=== PATIENT | female | born 1990 | race Caucasian/White ===

== ENCOUNTER 2022-02-18 23:41 | Emergency (ER) | payer OTHER ==
--- OUTSIDE RECORDS SUMMARY | 2022-02-18 23:45 | XMS REPORT | Continuity of Care Document ---
:1990 Author Organization [facility] t Address [address] [place] [place] [address] Care Team Providers Name Role Phone Jose Tovar DO Primary Care Physician Dia Andrews Attending Clinician Unavailable Antonio Stack Attending Clinician Unavailable YESENIA SNOWDEN Attending Clinician Unavailable Dia Andrews Admitting Clinician Unavailable Payers Payer Name Policy Type Policy Number Effective Date Expiration Date S ource Problems This patient has no known problems. Allergies, Adverse Reactions, Alerts Allergy Allergy Status Severity Reaction(s) Onset Inactive Treating Comm ents Source Name Type Date Date Clinician No Known DA Active U [facility] [place] No Known DA Active [facility] No Known DA Active U [facility] 10-21 [facility] No Known DA Active U [facility] Allergie 10-21 [facility] [place] Social History Social Habit Start Date Stop Date Quantity Comments Source History [facility] Drinks History [facility] Tobacco use and 2020-12-14 2020-12-14 Smokeless tobacco Me thodist exposure 00:00:00 00:00:00 non-user Hospital Alcohol intake 2020-12-14 2020-12-14 Lifetime [facility] 00:00:00 00:00:00 non-drinker Hospital (finding) History SDOH 2020-12-14 2020-12-14 1 [facility] Frequency 00:00:00 00:00:00 Hospita l Sex Assigned At [birth year] [facility] 00:[facility]00 [facility] Smoking Status Start Date Stop Date Source Never smoked tobacco [facility] Medications Ordered Filled Start Stop Current Ordering Indication Dosage Frequency Signature Comments Components Source Medication Medication Date Date Medication? Clinician (SIG) Name Name enoxaparin Yes ADMINISTER M ethodi (LOVENOX) 9-[address] 100 mg/mL 00:00: UNDER THE Hos tom syringe 00 SKIN EVERY l DAY HYDROcodone Yes Method i -acetaminop 9 st hen (NORCO) 00:00: Hospit a 5-325 mg 00 l per tablet ibuprofen Yes [facility] (ADVIL) [address] MG tablet 00:00: Hospita 00 l Comp-Air Yes See Admin Meth harshad Nebulizer 6-[address] Compressor 00:00: ns. Hospita device 00 l ipratropium Yes USE 1 VIAL Method[facility] -albuteroL 6-[address] (DUO-NEB) 00:00: NEBULIZER Hos tom 0.5-2.5 00 TWICE A l mg/3 mL DAY nebulizer Procedures Procedure Date / Time Performed Performing Clinician Jaylyn montes [id number] 2020-12-06 00:00:00 HENDE.01 [facility] [id number] 2020-12-06 00:00:00 GABINOE.01 [facility] [id number] 2020-12-06 00:00:00 ROMARIO.01 [facility] Plan of Care Planned Activity Planned Date Details Comments Source Future Scheduled 2022-02-02 [facility] B [facility] Test 20:13:32 VACCINES (1 of 3 - 3-dose series) [code = HEPATITIS B VACCINES (1 of 3 - 3-dose series)] Future Scheduled 2022-02-02 COVID-[address] [facility] Test 20:13:32 (#1) [code = COVID-19 VACCINE (#1)] Future Scheduled 2022-02-02 Hepatitis C [facility] Test 20:13:32 screening (procedure) [code = 552554383] Future Scheduled 2022-02-02 [facility]ening for [facility] Test 20:13:32 malignant neoplasm of cervix (procedure) [code = 363256762] Future Scheduled 2022-02-02 [facility]FLUENZA VACCINE [facility] Test 20:13:32 [code = INFLUENZA VACCINE] Encounters Start End Encounter Admission Attending Care Care Encounter Source Date/Time Date/Time Type Type Clinicians Facility Department ID 2020-12-14 Inpatient [facility] [id number] [facility] 17:15:00 [id number] [facility] [place] 2020-12-03 Inpatient EL Gabinoryx, [facility] [id number] [facility] 08:33:00 Dia [id number] [facility] [place] 2020-12-14 2020-12-14 Emergency ZENA Sreekanth, [facility] [id number] [facility] 17:15:00 22:54:00 Antonio 34 [facility] [place] 2020-12-14 2020-12-14 Emergency MOSES SNOWDENY [facility] [id number] [facility] 00:00:00 00:00:[address] 2020-12-12 2020-12-12 Outpatient EL Hendryx, [facility] [id number] [facility] 15:59:00 15:59:00 Dia [id number] [facility] [place] 2020-12-12 2020-12-12 Outpatient EL Hendryx, [facility] [id number] [facility] 15:59:00 15:59:00 Dia 13 [facility] [place] 2020-12-06 2020-12-07 Inpatient EL Hendryx, [facility] OBPP [id number] [facility] 02:35:00 22:25:00 Dia [id number] [facility] [place] 2020-12-05 2020-12-05 Emergency EL Hendryx, [facility] JAYSHREE [id number] [facility] 22:29:00 22:29:00 [facility] [id number] [facility] 2020-11-21 2020-11-21 Emergency EL BETSY Andrews JAYSHREE [id number] [facility] 20:16:00 21:14:00 [facility] [id number] [place] 2020-11-18 2020-11-19 Emergency EM BETSY Andrews JAYSHREE [id number] [facility] 22:07:00 03:25:00 [facility] [id number] [facility] Results Test Description Test Time Test Comments Results Result Comments Source COMPREHENSIVE METABOLIC PANEL 2020-12-14 20:35:00 Test Item Value Reference Range Interpretation Comme nts SODIUM (test code = NA) 140 mEq/L 135-145 N POTASSIUM (test code = K) 4.6 mEq/L 3.5-5.0 N CHLORIDE (test code = CL) 106 mEq/L 100-115 N CARBON DIOXIDE (test code = CO2) 27 mEq/L 22-31 N ANION GAP (test code = GAP) 11.70 10-20 N GLUCOSE (test code = GLU) 92 mg/dL 65-110 N BLOOD UREA NITROGEN (test code = BUN) 16 mg/dL 7-18 N GLOMERULAR FILTRATION RATE (test code = GFR) 119 ml/min >60 N CREATININE (test code = CREAT) 0.6 mg/dL 0.5-1.0 N TOTAL PROTEIN (test code = PROT) 7.5 gm/dL 6.3-8.2 N ALBUMIN (test code = ALB) 3.2 gm/dL 3.4-4.8 L CALCIUM (test code = CA) 9.0 mg/dL 8.4-10.2 N BILIRUBIN TOTAL (test code = BILT) 0.2 mg/dL 0.2-1.0 N SGOT/AST (test code = AST) 26 units/L 15-37 N SGPT/ALT (test code = ALT) 26 units/L 12-78 N ALKALINE PHOSPHATASE TOTAL (test code = ALKP) 135 units/L 46-116 H UA RFLX MICR CULT IF [id number] 20:34:00 Test Item Value Reference Range Interpretation Comments UA COLOR (test code = COLU) YELLOW YELLOW UA APPEARANCE (test code = Slightly-Cloudy CLEAR APPU) UA GLUCOSE DIPSTICK (test NEGATIVE NEG code = DGLUU) UA BILIRUBIN DIPSTICK (test NEGATIVE NEG code = BILU) UA KETONE DIPSTICK (test code NEGATIVE NEG = KETU) UA SPECIFIC GRAVITY (test 1.021 1.001-1.035 N code = SGU) UA BLOOD DIPSTICK (test code 1+ NEG A = JUAN J) UA PH DIPSTICK (test code = 5.0 5-9 ARIEL) UA PROTEIN DIPSTICK (test NEGATIVE NEG code = PROU) UA UROBILINIOGEN DIPSTICK NEGATIVE mg/dL NEG (test code = URO) UA NITRITE DIPSTICK (test NEG NEG code = PARTHA) UA LEUKOCYTE ESTERASE 3+ NEG A DIPSTICK (test code = LEUU) UA WBC (test code = WBCU) 31-40 #/hpf NONE SEEN A UA RBC (test code = RBCU) 3-5 #/hpf NONE SEEN A UA EPITHELIAL CELLS (test FEW #/HPF RARE-FEW code = EPIU) UA MUCUS (test code = MUCU) RARE NONE SEEN Indication for culture: Dysuria/FrequencySpecimen Description: CLEAN CATCHComments to Sheep Or Calf Grader: Clean CatchSpecimen Comment: Clean CatchCBC W/AUTO [id number] 19:50:00 Test Item Value Reference Range Interpretation Comments WHITE BLOOD CELL (test code = WBC) 9.2 K/mm3 6.5-12.3 N RED BLOOD CELL (test code = RBC) 5.06 M/mm3 3.51-4.69 H HEMOGLOBIN (test code = HGB) 14.6 g/dL 10.1-13.8 H HEMATOCRIT (test code = HCT) 44.7 % 32.5-41.8 H MEAN CELL VOLUME (test code = MCV) 88.3 fL 84.6-96.6 N MEAN CELL HGB (test code = MCH) 28.9 pg 27.3-33.9 N MEAN CELL HGB CONCETRATION (test 32.7 gm/dL 32.0-34.2 N code = MCHC) RED CELL DISTRIBUTION WIDTH (test 13.9 % 12.2-16.3 N code = RDW) PLATELET COUNT (test code = PLT) 423 K/mm3 134-363 H MEAN PLATELET VOLUME (test code = 9.9 fL 9.2-12.7 N MPV) NEUTROPHIL % (test code = NT%) 61.7 % 57.9-77.3 N LYMPHOCYTE % (test code = LY%) 28.5 % 14.5-29.7 N MONOCYTE % (test code = MO%) 6.5 % 3.6-10.2 N EOSINOPHIL % (test code = EO%) 2.4 % 0.0-3.0 N BASOPHIL % (test code = BA%) 0.6 % 0.1-0.9 N NEUTROPHIL # (test code = NT#) 5.7 K/mm3 LYMPHOCYTE # (test code = LY#) 2.6 K/mm3 MONOCYTE # (test code = MO#) 0.6 K/mm3 EOSINOPHIL # (test code = EO#) 0.22 K/mm3 BASOPHIL # (test code = BA#) 0.1 K/mm3 RBC MORPHOLOGY REQUIRED (test code NORMAL NORMAL = RBCM) PLATELET MORPHOLOGY REQUIRED (test NORMAL NORMAL code = PLTMR) - CT L-SPINE W/O [id number] 00:00:00 [facility] 1990 Sex: F Patient Name: MIHIR MENDOZA Unit No: [id number] EXAMS: CPT CODE: [id number] CT L-SPINE W/O CONTRAST 15476 Radiation Dose CTDIVOL = 21.75 (mGy): DLP = 808.98 (mGy-cm) PROCEDURE INFORMATION: Exam: CT Lumbar Spine Without Contrast Exam date and time: 12/14/2020 6:58 PM Age: 30 years old Clinical indication: Screening exam; Other: ; Back pain/crepitus, S/P epidural/vaginal delivery. ; Patient HX: Epidural and vag delivery 12/06/20 TECHNIQUE: Imaging protocol: Computed tomography images of the lumbar spine without contrast. Radiation optimization: All CT scans at this facility use at least one of these doseoptimization techniques: automated exposure control; mA and/or kV adjustment per patient size (includes targeted exams where dose is matched to clinical indication); or iterative reconstruction. COMPARISON: US LTD 11/18/2020 11:52 PM RADIATION DOSE METRICS: CTDI volume (mGy): 21.75 Total DLP (mGy-cm): 808.98 FINDINGS: Vertebrae: There are 5 nonrib-bearing lumbar vertebral segments. There is normal alignment of the lumbar spine without fractures or spondylolisthesis. The lumbar vertebrae demonstrate normal height. The posterior elements appear unremarkable intervertebral disc heights arewell preserved. There are no pars interarticularis defects noted. The anterior and posterior paraspinal soft tissues are unremarkable. Degenerative changes with vacuum phenomena along the bilateral sacroiliac joints. L1-L2: No significant disc protrusion. No severe spinal canal stenosis. No significant neural foraminal narrowing. L2-L3: No significant disc protrusion. No severe spinal canal stenosis.No significant neural foraminal narrowing. L3-L4: No significant disc protrusion. No severe spinal canal stenosis. No significant neural foraminal narrowing. L4-L5: No significant disc protrusion. No severe spinal canal [facility] NAME: MIHIR MENDOZA Radiology Department PHYS: SASKIA Melton SreekanthAntonio Perry [address] : 1990 AGE: 30 SEX: F [place], [place] [address] LOC: DONNA PHONE #: [phone] EXAM DATE: 12/14/2020 STATUS: REG ER FAX #: [phone] RAD NO: Page 1 Signed Report 1 Patient Name: MIHIR MENDOZA Unit No: [id number] EXAMS: CPT CODE:[id number] CT L-SPINE W/O CONTRAST 43165 (Continued) stenosis. No significant neural foraminal narrowing. L5-S1: No significant disc protrusion. No severe spinal canal stenosis. No significant neural foraminal narrowing. Soft tissues: Unremarkable. IMPRESSION: 1. No acute fracture or subluxation. 2. Bilateral sacroiliitis. at 1927 Reported and signed by: Yarelis Wynne MD CC: Dia Andrews MD Technologist: Kelly Lomeli, RT, CT CTDI: 21.75 DLP: 808.98 Trnscrbd D/ (1926) GCD.CPS [facility] NAME: MIHIR MENDOZA Radiology Department PHYS: Antonio Vidales [address] : 1990 AGE: 30 SEX: F [place] [address] LOC: KumarERS PHONE #: [phone] EXAM DATE: 12/14/2020 STATUS: REG ER FAX #: [phone] RAD NO: Page 2 Signed Report 1 Patient Name: MIHIR MENDOZA Unit No: [id number] EXAMS: CPT CODE: [id number] CT L-SPINE W/O CONTRAST 41448 (Continued) Orig Print D/T: S: 12/14/2020 (1926) [facility] NAME: MIHIR MENDOZA Radiology Department PHYS: Antonio Vidales [address] : 1990 AGE: 30 SEX: F [place] [address] LOC: KumarERS PHONE #: [phone] EXAM DATE: 12/14/2020 STATUS: REG ER FAX #: [phone] RAD NO: Page 3 Signed Report 1- [facility] [id number] 00:00:00 [facility] : 1990 Sex: F Patient Name: MIHIR MENDOZA Unit No: [id number] EXAMS: CPT CODE: [id number] [address] PROCEDURE INFORMATION: Exam: US Duplex Left Upper Extremity Veins, Limited Exam date and time: 12/12/2020 6:04 PM Age: 30 years old Clinical indication: Pain; Arm, upper; Left; Additional info: Lt arm poss phlebitis and thrombophlebitis after iv TECHNIQUE: Imaging protocol: Real-time Duplex ultrasound of the Left Upper Extremity with 2-D burgess scale, color Doppler flow and spectral waveform analysis with image documentation. Limited exam focused on the left upper extremity veins. COMPARISON: No relevant prior studies available. FINDINGS: Left deep veins: Axillary and brachial veins are patent throughout without thrombus. However, the brachial vein demonstrates slow flow with persistentcompressibility. Normal compressibility and/or augmentation response. Visualized internal jugular and subclavian veins are patent. Left superficial veins: Portions of the basilic vein are patent with color flow and compressibility with the lower aspect suggested to be partially thrombosed. Soft tissues: No significant finding. Other findings: A superficial vein in the medial posterior forearm demonstrates intraluminal heterogeneous hypoechoic thrombus with noncompressibility and color flow. IMPRESSION: 1. Superficial vein thrombosis in the forearm. 2. No definite deep vein thrombosis in the left upper extremity. Findings were discussed with Dia Andrews at 12/12/2020 7:17 PM CDT. at 1920 Reported and signed by: Dorian Avery MD CC: Dia Andrews MD Technologist: Nicci Gonzales RDMS Probe: Trnscrbd D/ (1919) GCD. CPS Orig Print D/T: S: 12/12/2020 (1919) [facility] NAME: IMHIR MENDOZA Radiology Department PHYS: ROMARIO. - Dia Andrews [address] : 1990 AGE: 30 [place]: [place] [address] LOC: KumarRAD PHONE #: [phone] EXAM DATE: 12/12/2020 STATUS: REG CLI FAX #: [phone] RAD NO: Page 1 Signed Report Patient Name: MIHIR MENDOZA Unit No: [id number] EXAMS: CPT CODE: [id number] [place] [address] (Continued) [facility] NAME: MIHIR MENDOZA Radiology Department PHYS: Dia Andrews [address] : 1990 AGE: 30 SEX: Sara [place], [place] [address] LOC: MARINE PHONE #: [phone] EXAM DATE: 12/12/2020 STATUS: REG CLI FAX #: [phone] RAD NO: Page 2 Signed ReportCBC W/AUTO [id number] 08:38:00 Test Item Value Reference Range Interpretation Comments WHITE BLOOD CELL (test code = WBC) 13.8 K/mm3 6.5-12.3 H RED BLOOD CELL (test code = RBC) 3.78 M/mm3 3.51-4.69 N HEMOGLOBIN (test code = HGB) 10.8 g/dL 10.1-13.8 N HEMATOCRIT (test code = HCT) 33.8 % 32.5-41.8 N MEAN CELL VOLUME (test code = MCV) 89.4 fL 84.6-96.6 N MEAN CELL HGB (test code = MCH) 28.6 pg 27.3-33.9 N MEAN CELL HGB CONCETRATION (test 32.0 gm/dL 32.0-34.2 N code = MCHC) RED CELL DISTRIBUTION WIDTH (test 14.6 % 12.2-16.3 N code = RDW) PLATELET COUNT (test code = PLT) 239 K/mm3 134-363 N MEAN PLATELET VOLUME (test code = 10.8 fL 9.2-12.7 N MPV) NEUTROPHIL % (test code = NT%) 59.0 % 57.9-77.3 N LYMPHOCYTE % (test code = LY%) 29.1 % 14.5-29.7 N MONOCYTE % (test code = MO%) 6.7 % 3.6-10.2 N EOSINOPHIL % (test code = EO%) 4.3 % 0.0-3.0 H BASOPHIL % (test code = BA%) 0.5 % 0.1-0.9 N NEUTROPHIL # (test code = NT#) 8.2 K/mm3 LYMPHOCYTE # (test code = LY#) 4.0 K/mm3 MONOCYTE # (test code = MO#) 0.9 K/mm3 EOSINOPHIL # (test code = EO#) 0.59 K/mm3 BASOPHIL # (test code = BA#) 0.1 K/mm3 RBC MORPHOLOGY REQUIRED (test code NORMAL NORMAL = RBCM) PLATELET MORPHOLOGY REQUIRED (test NORMAL NORMAL code = PLTMR) AG HEPATITIS B [id number] 03:37:00 Test Item Value Reference Range Interpretation Comments AG HEPATITIS B SURFACE (test code NONREACTIVE NONREACTIVE = HBSAG) AB HEPATITIS C [id number] 03:37:00 Test Item Value Reference Range Interpretation Comments AB HEPATITIS C (test code = NONREACTIVE NONREACTIVE HCVAB) SIGNAL TO CUTOFF (test code = 0.09 <0.80 N CUTOFF) AB [id number] 03:37:00 Test Item Value Reference Range Interpretation Comments AB TREPONEMA (test code = TREPAB) NONREACTIVE NONREACTIVE AB HIV 1 03:37:00 Test Item Value Reference Range Interpretation Comments AB HIV 1 2 (test NONREACTIVE NONREACTIVE [facility] code = [id number]) 4th Gen HIV Ag/Ab Combo Screen AG HEPATITIS B [id number] 03:13:00 Test Item Value Reference Range Interpretation Comments AG HEPATITIS B SURFACE (test code NONREACTIVE NONREACTIVE = HBSAG) AB HEPATITIS C [id number] 03:13:00 Test Item Value Reference Range Interpretation Comments AB HEPATITIS C (test code = HCVAB) NONREACTIVE SIGNAL TO CUTOFF (test code = CUTOFF) <0.80 AB [id number] 03:13:00 Test Item Value Reference Range Interpretation Comments AB TREPONEMA (test code = TREPAB) NONREACTIVE NONREACTIVE AB HIV 1 03:13:00 Test Item Value Reference Range Interpretation Comments AB HIV 1 2 (test code = [id number]) NONREACTIVE COVID 19 Asymptomatic IH [id number] 02:25:00 Test Item Value Reference Range Interpretation Comments COVID 19 NEGATIVE NEGATIVE This test has b een Asymptomatic IH AG authorize d only for the (test code = detection ofpro teins from COVNONPUIAG) SARS-CoV-2, not for any other viruses orpathogens. Ne gative results should be treated as presumptive andconfirmed wi th a molecular assay , if necessary for patientmanageme nt. Negative result s do not rule out COVID- 19 andshould not b e used as the sole basis for treatment orpat ient management deci sions, including infec tion controldecision s. Negative result s should be considered i n thecontext of a patient's recent exposure s, history and thepresence of clinical signs and symptoms consis tent withCOVID-19. T his test has not been FD A cleared or approved; th e test hasbeen authordeyvi richmond by FDA under an Emerge ncy Use Authorization(E UA) for use by laborato kristian certified under the CLIA thatmeet the re quirements to perform mode rate, high or waivedcomple xity tests. This ruma t is authorized for use at thePoint of Car e (POC), i.e., in patien t care settingsoperati ng under a CLIA Certificat e of Waiver, Certifi keagan ofCompliance, o r Certificate of Accreditation. This test is only authori yi for the duration of thedeclaration that circumstances e xist justifying theauthorizatio n of emergency use o f in vitro diagnostic test sfor detection and/o r diagnosis of CO VID-19 under [id number] 4(b)(1) of the Act, 21 U.S .C. 360bbb-3(b)(1), unless theauthorizatio n is terminated or r evoked sooner. Specimen Comment: LDO DCBC W/AUTO [id number] 02:22:00 Test Item Value Reference Range Interpretation Comments WHITE BLOOD CELL (test 20.5 K/mm3 6.5-12.3 HH RESUL TS CALLED TO code = WBC) JOEL GOMEZ.READ BACK & CONFIRMED? ZEV MaryYoanaBY [id number] 221. RED BLOOD CELL (test 4.73 M/mm3 3.51-4.69 H code = RBC) HEMOGLOBIN (test code = 13.5 g/dL 10.1-13.8 N HGB) HEMATOCRIT (test code = 41.8 % 32.5-41.8 N HCT) MEAN CELL VOLUME (test 88.4 fL 84.6-96.6 N code = MCV) MEAN CELL HGB (test code 28.5 pg 27.3-33.9 N = MCH) MEAN CELL HGB 32.3 gm/dL 32.0-34.2 N CONCETRATION (test code = MCHC) RED CELL DISTRIBUTION 14.4 % 12.2-16.3 N WIDTH (test code = RDW) PLATELET COUNT (test 309 K/mm3 134-363 N code = PLT) MEAN PLATELET VOLUME 10.8 fL 9.2-12.7 N (test code = MPV) NEUTROPHIL % (test code 70.2 % 57.9-77.3 N = NT%) LYMPHOCYTE % (test code 20.9 % 14.5-29.7 N = LY%) MONOCYTE % (test code = 6.6 % 3.6-10.2 N MO%) EOSINOPHIL % (test code 1.4 % 0.0-3.0 N = EO%) BASOPHIL % (test code = 0.3 % 0.1-0.9 N BA%) NEUTROPHIL # (test code 14.4 K/mm3 = NT#) LYMPHOCYTE # (test code 4.3 K/mm3 = LY#) MONOCYTE # (test code = 1.4 K/mm3 MO#) EOSINOPHIL # (test code 0.28 K/mm3 = EO#) BASOPHIL # (test code = 0.1 K/mm3 BA#) RBC MORPHOLOGY REQUIRED NORMAL NORMAL (test code = RBCM) PLATELET MORPHOLOGY NORMAL NORMAL REQUIRED (test code = PLTMR) URINALYSIS [id number] 00:35:00 Test Item Value Reference Range Interpretation Comments UA COLOR (test code = COLU) YELLOW YELLOW UA APPEARANCE (test code = Slightly-Cloudy CLEAR APPU) UA GLUCOSE DIPSTICK (test NEGATIVE NEG code = DGLUU) UA BILIRUBIN DIPSTICK (test NEGATIVE NEG code = BILU) UA KETONE DIPSTICK (test code 1+ NEG A = KETU) UA SPECIFIC GRAVITY (test 1.009 1.001-1.035 N code = SGU) UA BLOOD DIPSTICK (test code NEG NEG = JUAN J) UA PH DIPSTICK (test code = 6.0 5-9 ARIEL) UA PROTEIN DIPSTICK (test NEGATIVE NEG code = PROU) UA UROBILINIOGEN DIPSTICK NEGATIVE mg/dL NEG (test code = URO) UA NITRITE DIPSTICK (test NEG NEG code = PARTHA) UA LEUKOCYTE ESTERASE NEG NEG DIPSTICK (test code = LEUU) UA WBC (test code = WBCU) 0-2 #/hpf NONE SEEN UA RBC (test code = RBCU) 0-2 #/hpf NONE SEEN UA EPITHELIAL CELLS (test RARE #/HPF RARE-FEW code = EPIU) UA BACTERIA (test code = RARE /HPF RARE-FEW BACU) UA MUCUS (test code = MUCU) RARE NONE SEEN - US [id number] 00:00:00 [facility] 1990 Sex: F Patient Name: MIHIR MENDOZA Unit No: [id number] EXAMS: CPT CODE: [id number] [place] LTD 42788 PROCEDURE INFORMATION: Exam: US , Limited Exam date and time: 11/18/2020 11:52 PM Age: 30 years old Clinical indication: complicated by abdominal or pelvic pain; Left lower quadrant; Third trimester; Gestational age or lmp: 37wks 6 days; ; Additional info: Ab pain 37 weeks preg TECHNIQUE: Imaging protocol: Real-time ultrasound of the maternal uterus with image documentation. Exam focused on the clinical indication. COMPARISON: No relevant prior studies available. FINDINGS: Gestation: Single live intrauterine at 37 weeks 6 days. positi on: The structures are not individually evaluated on this examination, but no abnormality is demonstrated. heart rate: heart rate 136 bpm. Presentation: Cephalic. Placenta: Posterior fundal grade 2 placenta. No placenta previa. No retroplacental hematoma or abruption. Amniotic fluid index: ZACKARY 12.9 cm. MATERNAL: Cervix: Mildly limited visualization of the cervix estimated 2.4- 2.9 cmwith subtle hypoechogenicity in the region of the endocervical canal either representing artifact, mucus, or a small amount of endocervical fluid. Right adnexa: Nonvisualized maternal right ovary secondary to artifact from overlying bowel gas. Left adnexa: Normal maternal left ovary measuring 2.5 x 1.5 x 3.4 cm. Blood flow is demonstrated to the left ovary. IMPRESSION: 1. Single live intrauterine at 37 weeks 6 days. 2. ZACKARY 12.9 cm. 3. The structures are not individually evaluated on this examination, but no abnormality is demonstrated. 4. Mildly limited visualization of the cervix es timated 2.4-2.9 cm with subtle hypoechogenicity in the region of the endocervical canal either representing artifact, mucus, or a small amount of endocervical fluid. at 0031 Reported and signed by: Tj Mulligan MD [facility] NAME: MHIIR MENDOZA REZA Radiology Department PHYS: Kelvin Charlton III, MD [address] : 1990 AGE: 30 SEX: F [place], [place] [address] LOC: F.JAYSHREE PHONE #: [phone] EXAM DATE: 11/18/2020 STATUS: REG ER FAX #: [phone] RAD NO: Page 1 Signed Report (CONTINUED) Patient Name: MIHIR MENDOZA Unit No: [id number] EXAMS: CPT CODE: [id number] LTD 01158 (Continued) CC: Dia Andrews MD; Kelvin Thakur III, MD Technologist: Nicci Gonzales RDMS Probe: Trnscrbd D/ (0031) BARRERA.CPS Orig Print D/T: S: 11/19/2020 (0031) [facility] NAME: MIHIR MENDOZATANY Radiology Department PHYS: Kelvin Charlton [address] : 1990 AGE: 30 SEX: F [place] [address] LOC: Sara.OBEDPHONE #: [phone] EXAM DATE: 11/18/2020 STATUS: REG ER FAX #: [phone] RAD NO: Page 2 SignedReport Patient Name: MIHIR MENDOZA Unit No: [id number] EXAMS: CPT CODE: [id number] [facility] [address] (Continued) [facility] NAME: LINDSAY [facility] Rad[facility] Department PHYS: Kelvin Charlton III [place] [address] : 1990 AGE: 30 SEX: F [place] [id number] LOC: F.JAYSHREE PHONE #: [phone] EXAM DATE: 11/18/2020 STATUS: REG ER FAX#: [phone] RAD NO: Page 3 Signed ReportCBC W/AUTO [id number] 22:57:00 Test Item Value Reference Range Interpretation Comments WHITE BLOOD CELL (test code = WBC) 13.0 K/mm3 6.5-12.3 H RED BLOOD CELL (test code = RBC) 4.19 M/mm3 3.51-4.69 N HEMOGLOBIN (test code = HGB) 12.0 g/dL 10.1-13.8 N HEMATOCRIT (test code = HCT) 36.2 % 32.5-41.8 N MEAN CELL VOLUME (test code = MCV) 86.4 fL 84.6-96.6 N MEAN CELL HGB (test code = MCH) 28.6 pg 27.3-33.9 N MEAN CELL HGB CONCETRATION (test 33.1 gm/dL 32.0-34.2 N code = MCHC) RED CELL DISTRIBUTION WIDTH (test 13.9 % 12.2-16.3 N code = RDW) PLATELET COUNT (test code = PLT) 262 K/mm3 134-363 N MEAN PLATELET VOLUME (test code = 10.6 fL 9.2-12.7 N MPV) NEUTROPHIL % (test code = NT%) 62.1 % 57.9-77.3 N LYMPHOCYTE % (test code = LY%) 25.3 % 14.5-29.7 N MONOCYTE % (test code = MO%) 7.7 % 3.6-10.2 N EOSINOPHIL % (test code = EO%) 3.6 % 0.0-3.0 H BASOPHIL % (test code = BA%) 0.5 % 0.1-0.9 N NEUTROPHIL # (test code = NT#) 8.0 K/mm3 LYMPHOCYTE # (test code = LY#) 3.3 K/mm3 MONOCYTE # (test code = MO#) 1.0 K/mm3 EOSINOPHIL # (test code = EO#) 0.47 K/mm3 BASOPHIL # (test code = BA#) 0.1 K/mm3 RBC MORPHOLOGY REQUIRED (test code NORMAL NORMAL = RBCM) PLATELET MORPHOLOGY REQUIRED (test NORMAL NORMAL code = PLTMR) LAURENCE [id number] 11:44:00 RUN DATE: 10/29/18 [facility] PAGE 1 RUN TIME: 1346 Specimen Inquiry RUN USER: INTERFACE --PATIENT: MIHIR MENDOZA LOC: JEREMY U #: [id number] AGE/SX: 28/ ROOM: [facility] RE10/27/18REG DR: Dia Andrews MD : 89 BED: A DIS: STATUS: ADM IN TLOC: SPEC #: [id number] RECD: 10/27/18 STATUS: KAILEY REBarbara #: [id number] ANCA: 10/27/18- SUBM DR: Dia Andrews MD ENTERED: 10/28/18 SP TYPE: VAGBX OTHR DR: ORDERED: LEVEL IV CODES: [id number] - VAGINA, NOS PROCEDURES: LEVEL IV (Incomplete) TISSUES: VAGINA, NOS - VAGINAL INCLUSION CYSTS CLINICAL HISTORY 28 year old, 40.3 weeks, vaginal inclusion cysts (kr) FINAL DIAGNOSIS Vaginal inclusion cysts x2, excision: - benign epithelial inclusion cysts CPT code(s): 08261 [facility] GROSS DESCRIPTION ANATOMIC SOURCE OF TISSUE (per Requisition): Vaginal inclusion cysts x2 The specimen is received in a formalin-filled container, labeled with the p atient's name and designated "vaginal inclusion cysts x2". The specimen consists of two well-circumscribed, unilocular cystic structures with attached soft tissues, 0.4 and 0.6 cm. The tissues are submitted in toto labeled A1. cem 10/28/18 @ 0923 Signed Benita Acharya MD 10/29/18 1144 END OF REPORT CBC W/AUTO [id number] 08:26:00 Test Item Value Reference Range Interpretation Comments WHITE BLOOD CELL (test code = WBC) 14.4 K/mm3 6.6-12.1 H RED BLOOD CELL (test code = RBC) 3.81 M/mm3 3.45-5.01 N HEMOGLOBIN (test code = HGB) 10.8 g/dL 10.7-13.9 N HEMATOCRIT (test code = HCT) 33.4 % 32.1-42.1 N MEAN CELL VOLUME (test code = MCV) 88 fL 84.1-94.8 N MEAN CELL HGB (test code = MCH) 28.3 pg 27-35 N MEAN CELL HGB CONCETRATION (test 32.3 gm/dL 32.2-34.1 N code = MCHC) RED CELL DISTRIBUTION WIDTH (test 13.8 % 12.4-16.5 N code = RDW) PLATELET COUNT (test code = PLT) 186 K/mm3 133-385 N IMMATURE PLATELET FRACTION (test 0.0 % 0.0-10.8 N code = IPF) MEAN PLATELET VOLUME (test code = 10.5 fl 9.1-12.7 N MPV) NEUTROPHIL % (test code = NT%) 67.9 % 56.5-79.4 N LYMPHOCYTE % (test code = LY%) 21.2 % 14.3-34.3 N MONOCYTE % (test code = MO%) 7.7 % 5.1-10.4 N EOSINOPHIL % (test code = EO%) 2.2 % 0.1-3.0 N BASOPHIL % (test code = BA%) 0.5 % 0.1-1.0 N NEUTROPHIL # (test code = NT#) 9.8 K/mm3 LYMPHOCYTE # (test code = LY#) 3.1 K/mm3 MONOCYTE # (test code = MO#) 1.1 K/mm3 EOSINOPHIL # (test code = EO#) 0.32 K/mm3 BASOPHIL # (test code = BA#) 0.1 K/mm3 RBC MORPHOLOGY REQUIRED (test code NORMAL NORMAL = RBCM) PLATELET MORPHOLOGY REQUIRED (test NORMAL NORMAL code = PLTMR) AG HEPATITIS B [id number] 15:02:00 Test Item Value Reference Range Interpretation Comments AG HEPATITIS B SURFACE (test code NONREACTIVE NONREACTIVE = HBSAG) AB HEPATITIS C [id number] 15:02:00 Test Item Value Reference Range Interpretation Comments AB HEPATITIS C (test code = NONREACTIVE NONREACTIVE HCVAB) SIGNAL TO CUTOFF (test code = 0.05 <0.80 N CUTOFF) AB [id number] 15:02:00 Test Item Value Reference Range Interpretation Comments AB TREPONEMA (test code = TREPAB) NONREACTIVE NONREACTIVE AB HIV 1 15:02:00 Test Item Value Reference Range Interpretation Comments AB HIV 1 2 (test NONREACTIVE NONREACTIVE Done by [facility] code = MED79DA) 4th Gen HIV Ag/Ab Combo Screen AG HEPATITIS B [id number] 10:31:00 Test Item Value Reference Range Interpretation Comments AG HEPATITIS B SURFACE (test code NONREACTIVE NONREACTIVE = HBSAG) AB HEPATITIS C [id number] 10:31:00 Test Item Value Reference Range Interpretation Comments AB HEPATITIS C (test code = NONREACTIVE NONREACTIVE HCVAB) SIGNAL TO CUTOFF (test code = 0.05 <0.80 N CUTOFF) AB [id number] 10:31:00 Test Item Value Reference Range Interpretation Comments AB TREPONEMA (test code = TREPAB) NONREACTIVE NONREACTIVE AG HEPATITIS B [id number] 10:27:00 Test Item Value Reference Range Interpretation Comments AG HEPATITIS B SURFACE (test code NONREACTIVE NONREACTIVE = HBSAG) AB HEPATITIS C [id number] 10:27:00 Test Item Value Reference Range Interpretation Comments AB HEPATITIS C (test code = HCVAB) NONREACTIVE SIGNAL TO CUTOFF (test code = CUTOFF) <0.80 AB [id number] 10:27:00 Test Item Value Reference Range Interpretation Comments AB TREPONEMA (test code = TREPAB) NONREACTIVE NONREACTIVE CBC W/AUTO [id number] 09:26:00 Test Item Value Reference Range Interpretation Comments WHITE BLOOD CELL (test code = WBC) 11.7 K/mm3 6.6-12.1 N RED BLOOD CELL (test code = RBC) 4.48 M/mm3 3.45-5.01 N HEMOGLOBIN (test code = HGB) 12.7 g/dL 10.7-13.9 N HEMATOCRIT (test code = HCT) 39.5 % 32.1-42.1 N MEAN CELL VOLUME (test code = MCV) 88 fL 84.1-94.8 N MEAN CELL HGB (test code = MCH) 28.3 pg 27-35 N MEAN CELL HGB CONCETRATION (test 32.2 gm/dL 32.2-34.1 N code = MCHC) RED CELL DISTRIBUTION WIDTH (test 14.0 % 12.4-16.5 N code = RDW) PLATELET COUNT (test code = PLT) 237 K/mm3 133-385 N IMMATURE PLATELET FRACTION (test 0.0 % 0.0-10.8 N code = IPF) MEAN PLATELET VOLUME (test code = 11.4 fl 9.1-12.7 N MPV) NEUTROPHIL % (test code = NT%) 68.5 % 56.5-79.4 N LYMPHOCYTE % (test code = LY%) 20.9 % 14.3-34.3 N MONOCYTE % (test code = MO%) 8.0 % 5.1-10.4 N EOSINOPHIL % (test code = EO%) 1.5 % 0.1-3.0 N BASOPHIL % (test code = BA%) 0.4 % 0.1-1.0 N NEUTROPHIL # (test code = NT#) 8.0 K/mm3 LYMPHOCYTE # (test code = LY#) 2.4 K/mm3 MONOCYTE # (test code = MO#) 0.9 K/mm3 EOSINOPHIL # (test code = EO#) 0.18 K/mm3 BASOPHIL # (test code = BA#) 0.1 K/mm3 RBC MORPHOLOGY REQUIRED (test code NORMAL NORMAL = RBCM) PLATELET MORPHOLOGY REQUIRED (test NORMAL NORMAL code = PLTMR)
[2022-02-19] MEDS ORDERED: dexAMETHasone 10 MG/ML VIAL ONE (00:07)
--- NOTE | 2022-02-19 00:08 | EDPHYS ---
Physician Documentation [facility] Name: Jeana Simental Age: 31 yrs Sex: Female : 1990 Arrival Date: 02/18/2022 Time: 23:44 Bed 20 Private MD: ED Physician Anibal Larsen HPI: 02/19 00:02 This 31 yrs old Female presents to ER via Ambulatory with complaints of malvin Fever, Sore Throat, Cough. 00:02 The patient reports fever, that was measured at 104 degrees Fahrenheit. Onset: The malvin symptoms/episode began/occurred 2 day(s) ago. Modifying factors: there are no obvious modifying factors. Severity of symptoms: At their worst the symptoms were mild in the emergency department the symptoms are unchanged. The patient has experienced similar episodes in the past, several times. 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 Last tetanus immunization: unknown. - Social history:: Smoking status: Patient denies any tobacco usage or history of. - Family history:: not pertinent. ROS: 02/19 00:02 Constitutional: Negative for fever, chills, and weight loss, Eyes: Negative for injury, malvin pain, redness, and discharge, Neck: Negative for injury, pain, and swelling, Cardiovascular: Negative for chest pain, palpitations, and edema, Respiratory: Negative for shortness of breath, cough, wheezing, and pleuritic chest pain, Abdomen/GI: Negative for abdominal pain, nausea, vomiting, diarrhea, and constipation, Back: Negative for injury and pain, : Negative for injury, bleeding, discharge, and swelling, MS/Extremity: Negative for injury and deformity, Skin: Negative for injury, rash, and discoloration, Neuro: Negative for headache, weakness, numbness, tingling, and seizure, Psych: Negative for depression, anxiety, suicide ideation, homicidal ideation, and hallucinations, Allergy/Immunology: Negative for hives, rash, and allergies, Endocrine: Negative for neck swelling, polydipsia, polyuria, polyphagia, and marked weight changes, Hematologic/Lymphatic: Negative for swollen nodes, abnormal bleeding, and unusual bruising. ENT: Positive for sore throat. Exam: 00:02 Constitutional: This is a well developed, well nourished patient who is awake, alert, malvin and in no acute distress. Head/Face: Normocephalic, atraumatic. Eyes: Pupils equal round and reactive to light, extra-ocular motions intact. Lids and lashes normal. Conjunctiva and sclera are non-icteric and not injected. Cornea within normal limits. Periorbital areas with no swelling, redness, or edema. Neck: Trachea midline, no thyromegaly or masses palpated, and no cervical lymphadenopathy. Supple, full range of motion without nuchal rigidity, or vertebral point tenderness. No Meningismus. Chest/axilla: Normal chest wall appearance and motion. Nontender with no deformity. No lesions are appreciated. Cardiovascular: Regular rate and rhythm with a normal S1 and S2. No gallops, murmurs, or rubs. Normal PMI, no JVD. No pulse deficits. Respiratory: Lungs have equal breath sounds bilaterally, clear to auscultation and percussion. No rales, rhonchi or wheezes noted. No increased work of breathing, no retractions or nasal flaring. Abdomen/GI: Soft, non-tender, with normal bowel sounds. No distension or tympany. No guarding or rebound. No evidence of tenderness throughout. Back: No spinal tenderness. No costovertebral tenderness. Full range of motion. Skin: Warm, dry with normal turgor. Normal color with no rashes, no lesions, and no evidence of cellulitis. MS/ Extremity: Pulses equal, no cyanosis. Neurovascular intact. Full, normal range of motion. Neuro: Awake and alert, GCS 15, oriented to person, place, time, and situation. Cranial nerves II-XII grossly intact. Motor strength 5/5 in all extremities. Sensory grossly intact. Cerebellar exam normal. Normal gait. Psych: Awake, alert, with orientation to person, place and time. Behavior, mood, and affect are within normal limits. 00:02 ENT: Posterior pharynx: Airway: normal, no evidence of obstruction, Tonsils: bilaterally enlarged, with erythema, with exudate, Uvula: midline, swelling, that is mild, erythema, that is mild, exudate, is not appreciated, peritonsillar mass, is not appreciated, pooling of secretions, is not appreciated. Vital Signs: 02/18 23:51 BP 109 / 85; Pulse 114; Resp 20; Temp 98.5; Pulse Ox 100% ; Weight 90.72 kg; Height 5 kb3 ft. 3 in. (160.02 cm); Pain 8/10; 02/19 00:25 BP 114 / 74; Pulse 102; Resp 18; Pulse Ox 99% on R/A; kd3 02/18 23:51 Body Mass Index 35.43 (90.72 kg, 160.02 cm) kb3 MDM: 02/18 23:49 Patient medically screened. malvin 02/19 00:05 Differential diagnosis: bacterial infection. Data reviewed: vital signs, nurses notes, malvin lab test result(s), Flu: negative. Data interpreted: alarm security or surveillance monitor: not applicable for this patient encounter. rate is 20 beats/min, rhythm is regular, Pulse oximetry: on room air. Test interpretation: by ED physician or midlevel provider:. Counseling: I had a detailed discussion with the patient and/or guardian regarding: the historical points, exam findings, and any diagnostic results supporting the discharge/admit diagnosis, lab results. 00:16 ED course: No concern for GC. malvin 02/19 00:02 Order name: Strep malvin 02/19 00:02 Order name: COVID-19/FLU A+B malvin Administered Medications: 00:25 Drug: Decadron (dexamethasone) 10 mg Route: IM; Site: left gluteus; kd3 00:35 Follow up: Response: No adverse reaction kd3 00:25 Drug: Bicillin L-A (penicillin G Benzathine) 1.8 million units Route: IM; Site: left kd3 gluteus; 00:36 Follow up: Response: No adverse reaction kd3 Disposition Summary: 02/19/22 00:06 Discharge Ordered Location: Home malvin Problem: new malvin Symptoms: have improved malvin Condition: Stable malvin Diagnosis - Acute tonsillitis, unspecified malvin - Fever, unspecified malvin Followup: malvin - With: Private Physician - When: 2 - 3 days - Reason: Recheck today's complaints, Continuance of care, Re-evaluation by your physician Discharge Instructions: - Discharge Summary Sheet malvin - Fever, Adult malvin - Tonsillitis malvin - Tonsillitis, [id number] malvin - Tonsillectomy, Adult, Care After, [id number] malvin - Fever, Adult, Olgg-ug-Jlej malvin Forms: - Medication Reconciliation Form malvin - Thank You Letter malvin - Antibiotic Education malvin - Prescription Opioid Use malvin Signatures: Dispatcher [employer] Anibal Fam MD MD cha Doucette, Kyli RN RN kd3 Lakshmi Cuadra RN RN kb3
--- NOTE | 2022-02-19 00:08 | ER ---
Nurse's Notes [facility] Name: Jeana Simental Age: 31 yrs Sex: Female : 1990 Arrival Date: 02/18/2022 Time: 23:44 Bed 20 Private MD: Diagnosis: Acute tonsillitis, unspecified;Fever, unspecified Presentation: 02/18 23:51 Chief complaint: Patient states: Pt reports sore throat, dry cough, and fever x2 days. kb3 Negative for covid/flu/strep at Urgent Care yesterday. Began taking amoxicillin today. Coronavirus screen: Vaccine status: Patient reports being unvaccinated. Client denies travel out of the [place] in the last 14 days. Ebola Screen: Patient negative for fever greater than or equal to 101.5 degrees Fahrenheit, and additional compatible Ebola Virus Disease symptoms Patient denies exposure to infectious person. Patient denies travel to an Ebola-affected area in the 21 days before illness onset. Initial Sepsis Screen: Does the patient meet any 2 criteria? No. Patient's initial sepsis screen is negative. Does the patient have a suspected source of infection? Yes: Other: Pharyngitis. Risk Assessment: Do you want to hurt yourself or someone else? Patient reports no desire to harm self or others. Onset of symptoms was February 16, 2022. 23:51 Method Of Arrival: Ambulatory kb3 23:51 Acuity: CHOCO 3 kb3 Triage Assessment: 23:55 General: Appears in no apparent distress. Behavior is calm, cooperative. Pain: kb3 Complains of pain in left aspect of posterior pharynx and right aspect of posterior pharynx Pain does not radiate. Pain currently is 8 out of 10 on a pain scale. EENT: Throat is reddened has patchy exudate has enlarged tonsils bilaterally. 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 Last tetanus immunization: unknown. - Social history:: Smoking status: Patient denies any tobacco usage or history of. - Family history:: not pertinent. Screenin/23 00:26 Abuse screen: Denies threats or abuse. Denies injuries from another. Nutritional kd3 screening: No deficits noted. Tuberculosis screening: No symptoms or risk factors identified. Fall Risk None identified. Assessment: 00:26 General: Appears in no apparent distress. Behavior is calm, cooperative. Neuro: Level kd3 of Consciousness is awake, alert, obeys commands, Oriented to person, place, time, situation. Cardiovascular: Patient's skin is warm and dry. Respiratory: Airway is patent Respiratory effort is even, unlabored, Breath sounds are clear bilaterally. Vital Signs: 02/18 23:51 BP 109 / 85; Pulse 114; Resp 20; Temp 98.5; Pulse Ox 100% ; Weight 90.72 kg; Height 5 kb3 ft. 3 in. (160.02 cm); Pain 8/10; 02/19 00:25 BP 114 / 74; Pulse 102; Resp 18; Pulse Ox 99% on R/A; kd3 02/18 23:51 Body Mass Index 35.43 (90.72 kg, 160.02 cm) kb3 ED Course: 02/18 23:44 Patient arrived in ED. ag3 23:49 Anibal Larsen MD is Attending Physician. [facility] 23:55 Triage completed. kb3 23:55 Arm band placed on right wrist. kb3 02/19 00:04 Sandhya Wiseman RN is Primary Nurse. kd3 00:26 Patient has correct armband on for positive identification. kd3 Administered Medications: 00:25 Drug: Decadron (dexamethasone) 10 mg Route: IM; Site: left gluteus; kd3 00:35 Follow up: Response: No adverse reaction kd3 00:25 Drug: Bicillin L-A (penicillin G Benzathine) 1.8 million units Route: IM; Site: left kd3 gluteus; 00:36 Follow up: Response: No adverse reaction kd3 Medication: 00:26 VIS not applicable for this client. kd3 Outcome: 00:06 Discharge ordered by . [facility] 00:36 Patient left the ED. kd3 Signatures: Anibal Larsen MD MD cha Gomez, Alice 3 Sandhya Wiseman RN RN kd3 Khalif, Lakshmi, RN RN kb3
[2022-02-19] MEDS ORDERED: PEN G BENZ LA 1.2MU/2ML SYRINGE IM ONE ×2 (00:09→00:22)
[2022-02-19 00:48] VITALS: TEMP 98.5
[2022-02-19 00:49] VITALS: BP 114/74; O2SAT 99
[2022-02-19 01:44] LABS: SARS-COV-2 RT PCR NEGATIVE (NEGATIVE)
== END 2022-02-19 00:36 | disposition home or self-care (01) ==
LOC: ER 23:41
DX: J03.90 Acute tonsillitis, unspecified (principal); Z20.822 Contact with and (suspected) exposure to COVID-19
CPT/HCPCS: 87070; 87081; 0240U; 96372; 99282; J0561 ×2; J1100